=== PATIENT | female | born 1955 | race Two or more races ===

== ENCOUNTER 2023-03-14 06:41 | Day surgery (SDC) | payer MEDICARE ==
[2023-03-14] VITALS (8 sets, daily range): BP systolic 110–136; BP diastolic 45–67; PULSE 63–70; RESP 12–21; TEMP 96.9; O2SAT 94–96
[~2023-03-14] VITALS: Ht 165.1 cm; Wt 78.5 kg
[~2023-03-14 06:41] MED LIST: ASPI-543 PO; ATO40T PO
[2023-03-14] MEDS ORDERED: METO25TA93 PO (07:15)
[2023-03-14] MEDS ORDERED: AMLO2.5C9 PO (07:15)
[2023-03-14] MEDS ORDERED: ATOR40TA52 PO (07:16)
[2023-03-14] MEDS ORDERED: LIDOCAINE 2%HCL (LOCAL ANESTH.) INJ 20ML MDV ONE (07:43)
[2023-03-14] MEDS ORDERED: IODIXANOL 320MG/ML 100ML BTL IV ONE ×2 (07:43→08:55)
[2023-03-14] MEDS ORDERED: VERAPAMIL 2.5MG/ML INJ 2ML VIAL IV ONE (08:04)
[2023-03-14] MEDS ORDERED: ANGIOMAX 250 MG VIAL IV ONE (08:04)
[2023-03-14] MEDS ORDERED: fentaNYL CITRATE 100 MCG/2 ML VL ONE (08:04)
[2023-03-14] MEDS ORDERED: SODIUM CHL 0.9% 0 ML ONE (08:05)
[2023-03-14] MEDS ORDERED: MIDAZOLAM HCL 2MG/2ML 2ml VIAL (1mg/ml) ONE (08:05)
[2023-03-14] MEDS ORDERED: HEPARIN SODIUM (PORCINE) 5000 UNITS/ML 1ML VIAL ONE (08:56)
== END 2023-03-14 11:10 | disposition home or self-care (01) ==
LOC: CATH 06:41
PROVIDERS: ATTEND Internal Medicine Cardiovascular Disease
DX: I25.10 Atherosclerotic heart disease of native coronary artery without angina pectoris (principal); I10 Essential (primary) hypertension; E78.5 Hyperlipidemia, unspecified; I47.1 Supraventricular tachycardia; Z96.659 Presence of unspecified artificial knee joint; Z79.899 Other long term (current) drug therapy
CPT/HCPCS: 93458; 93571; C1725; C1894; J1644; J2250; J3010; J7030; Q9967; 99152